=== PATIENT | female | born 1990 | race Caucasian/White ===

== ENCOUNTER 2018-12-05 17:27 | Emergency (ER) | payer OTHER ==
[~2018-12-05] VITALS: Ht 188 cm; Wt 93.4 kg
[2018-12-05] MEDS ORDERED: PRENATABS FA T1 EACH (17:48)
[2018-12-05] MEDS ORDERED: FOLIC ACID1 MG (17:49)
== END 2018-12-05 20:51 | disposition home or self-care (01) ==
LOC: ER 17:27
DX: O20.0 Threatened abortion (principal)

== ENCOUNTER 2018-12-29 13:03 | Day surgery (SDC) | payer OTHER ==
[~2018-12-29 13:03] MED LIST: FOLIC ACID1 MG; PRENATABS FA T1 EACH
== END 2018-12-30 02:30 | disposition home or self-care (01) ==
LOC: CIR.AMB 13:03
DX: O02.1 Missed abortion (principal); Z3A.01 Less than 8 weeks gestation of pregnancy

== ENCOUNTER 2019-05-07 09:52 | Outpatient (CLI) | payer OTHER | END 2019-05-07 15:00 | disposition home or self-care (01) | LOC: LAB 09:52 | DX: N91.1 Secondary amenorrhea (principal) ==

== ENCOUNTER 2020-04-08 07:54 | Outpatient (CLI) | payer OTHER | END 2020-04-08 07:59 | disposition home or self-care (01) | LOC: LAB 07:54 | PROVIDERS: ATTEND Obstetrics & Gynecology | DX: Z34.81 Encounter for supervision of other normal pregnancy, first trimester (principal) ==

== ENCOUNTER 2020-05-26 14:52 | Outpatient (CLI) | payer OTHER | END 2020-05-26 15:10 | disposition home or self-care (01) | LOC: LAB 14:52 | PROVIDERS: ATTEND Obstetrics & Gynecology | DX: Z34.81 Encounter for supervision of other normal pregnancy, first trimester (principal) ==

== ENCOUNTER 2020-10-25 11:46 | Outpatient (CLI) | payer OTHER | END 2020-10-25 12:15 | disposition home or self-care (01) | LOC: NST 11:46 | PROVIDERS: ATTEND Obstetrics & Gynecology Maternal & Fetal Medicine | DX: Z34.83 Encounter for supervision of other normal pregnancy, third trimester (principal) ==

== ENCOUNTER 2020-10-25 13:15 | Inpatient (IN) | payer OTHER ==
[~2020-10-25] VITALS: Ht 157.5 cm; Wt 111.6 kg
[2020-11-02] MEDS ORDERED: PRENATAL TABLE1 EAC1 (10:03)
[2020-11-02] MEDS ORDERED: VALTREX1000 MG (10:04)
== END 2020-11-05 13:40 | disposition home or self-care (01) | DRG 788 ==
LOC: EDBD 13:15 → OB/GYN 11-02 06:30 → LDR 11-02 06:30 → O/R 11-02 20:24 → OB/GYN 11-02 20:35
PROVIDERS: ADMIT Obstetrics & Gynecology; ATTEND Obstetrics & Gynecology
PROC: 4A1HXFZ Monitoring of Products of Conception, Cardiac Rhythm, External Approach (ICD-10-PCS; 2020-11-02)
PROC: 10D00Z1 Extraction of Products of Conception, Low, Open Approach (ICD-10-PCS; principal; 2020-11-02 17:00)
DX: O65.8 Obstructed labor due to other maternal pelvic abnormalities (principal); Z3A.39 39 weeks gestation of pregnancy; Z37.0 Single live birth; Z20.822 Contact with and (suspected) exposure to COVID-19